=== PATIENT | male | born 1940 | race African-American/Black ===

== ENCOUNTER 2022-08-15 10:20 | Outpatient (RCR) | payer OTHER | END 2022-09-01 | LOC: RESP 10:20 | DX: J44.1 Chronic obstructive pulmonary disease with (acute) exacerbation (principal) | CPT/HCPCS: 94799 ==

== ENCOUNTER 2022-12-04 11:42 | Outpatient (RCR) | payer OTHER | END 2023-01-02 | LOC: RESP 11:42 | PROVIDERS: ATTEND Internal Medicine Critical Care Medicine | DX: J44.1 Chronic obstructive pulmonary disease with (acute) exacerbation (principal) | CPT/HCPCS: 94626 ×8; G0238 ×8 ==

== ENCOUNTER 2023-01-03 14:36 | Outpatient (RCR) | payer OTHER | END 2023-02-01 | LOC: RESP 14:36 | PROVIDERS: ATTEND Internal Medicine Critical Care Medicine | DX: J44.1 Chronic obstructive pulmonary disease with (acute) exacerbation (principal) | CPT/HCPCS: 94626 ×5; G0238 ×5 ==